=== PATIENT | male | born 1945 | race Caucasian/White ===

== ENCOUNTER 2019-05-10 10:03 | Day surgery (SDC) | payer MEDICARE, BC ==
[~2019-05-10] VITALS: Ht 175.3 cm; Wt 94.8 kg
[2019-05-10 10:47] VITALS: BP 155/85
[2019-05-10] MEDS ORDERED: CEFAZOLIN PMX 1GM/50ML 50 ML IV STA (11:40)
[2019-05-10] MEDS ORDERED: FENTANYL PF 100 MCG/2ML ONE (11:48)
[2019-05-10] MEDS ORDERED: MIDAZOLAM 1 MG/ML, 5ML ONE (11:48)
[2019-05-10] MEDS ORDERED: FLUMAZENIL 0.1 MG/1 ML, 5ML ONE (11:49)
[2019-05-10] MEDS ORDERED: NALOXONE 1 MG/ML, 2ML ONE (11:49)
[2019-05-10] MEDS ORDERED: LIDOCAINE 1%, 20ML ONE (11:55)
[2019-05-10] MEDS ORDERED: LIDOCAINE 1%, 10ML ONE (11:55)
[2019-05-10] MEDS ORDERED: SODIUM CHLORIDE 0.9% 1,000 ML IV SCH (12:00)
== END 2019-05-10 14:35 | disposition home or self-care (01) ==
LOC: OUT 10:03
PROVIDERS: ATTEND Internal Medicine Hematology & Oncology
DX: C32.8 Malignant neoplasm of overlapping sites of larynx (principal); I10 Essential (primary) hypertension; F41.9 Anxiety disorder, unspecified; I25.10 Atherosclerotic heart disease of native coronary artery without angina pectoris; E78.5 Hyperlipidemia, unspecified; Z79.01 Long term (current) use of anticoagulants; Z79.899 Other long term (current) drug therapy; Z85.51 Personal history of malignant neoplasm of bladder; Z86.711 Personal history of pulmonary embolism; Z87.891 Personal history of nicotine dependence; Z88.8 Allergy status to other drugs, medicaments and biological substances; Z95.5 Presence of coronary angioplasty implant and graft; Z98.890 Other specified postprocedural states; Z80.59 Family history of malignant neoplasm of other urinary tract organ; Z80.6 Family history of leukemia
CPT/HCPCS: 36561; 76937; 77001; 99156; 99157; C1788; C1894; J0690; J1642; J2250; J3010; J2310